=== PATIENT | female | born 1960 | race Caucasian/White ===

== ENCOUNTER 2024-10-20 16:27 | Emergency (ER) | payer BC | END 2024-10-20 18:05 | disposition home or self-care (01) | LOC: LB.ED 16:27 | DX: S60.452A Superficial foreign body of right middle finger, initial encounter (principal); I10 Essential (primary) hypertension; E03.9 Hypothyroidism, unspecified; W45.8XXA Other foreign body or object entering through skin, initial encounter; Y93.89 Activity, other specified | CPT/HCPCS: 64450; 99283; J2003 ==